=== PATIENT | male | born 1950 | race Two or more races ===

== ENCOUNTER 2024-10-20 16:13 | Emergency (ER) | payer MEDICARE, MEDICAID, SELFPAY ==
[2024-10-20 16:16] VITALS: BMI 29.2
[2024-10-20 16:32] VITALS: BP 101/65; PULSE 75; RESP 18; TEMP 37.1; O2SAT 99
--- NOTE | 2024-10-20 16:49 | PD.EDRME ---
Rapid Medical Screening Exam RME Arrival date/time: 10/20/24 16:13 Chief Complaint: General Adult/Misc Complain Vital signs: Vital Signs Temperature 98.7 F 10/20/24 16:32 Pulse Rate 75 10/20/24 16:32 Respiratory Rate 18 10/20/24 16:32 Blood Pressure 101/65 10/20/24 16:32 Pulse Oximetry (%) 99 10/20/24 16:32 Oxygen Delivery Method Room Air 10/20/24 16:32 Pulse ox is 99% room air Vital signs reviewed by provider: Yes RME Narrative: Patient presents to the emergency department with a complaint of left-sided facial drooping that began last night. Denies chest pain.
--- NOTE | 2024-10-20 16:50 | XR_ITS ---
Examination: PA lateral chest 2 views TECHNIQUE: Upright PA and lateral chest 2 views Date and time: October 20, 2024, 1657 hours INDICATIONS: Chest pain and shortness of breath today. FINDINGS: Early pneumonia left base, obscuring detail left hemidiaphragm Normal heart size No pulmonary edema. Moderate osteopenia IMPRESSION: Early pneumonia left base
--- NOTE | 2024-10-20 16:50 | EKG_ITS ---
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1950 Requested By: Tim Green Order Number: [id number] Reading MD: Tim Green Measurements Intervals [place] Rate: 56 P: 5 NV: 194 QRS: -24 QRSD: 115 T: 58 QT: 419 QTc: 407 Interpretive Statements SINUS BRADYCARDIA BORDERLINE LEFT AXIS DEVIATION [QRS AXIS < -20] MODERATE INTRAVENTRICULAR CONDUCTION DELAY [110+ ms QRS DURATION] MODERATE VOLTAGE CRITERIA FOR LVH, CONSIDER NORMAL VARIANT [MEETS CRITERIA IN ONE OF: R(aVL), S(V1), R(V5), R(V5/V6)+S(V1)] NONSPECIFIC T-WAVE ABNORMALITY Compared to ECG 08/28/2023 12:27:19 Sinus rhythm no longer present Ventricular premature complex(es) no longer present T-wave abnormality still present /store/S0/[id number].pdf
--- NOTE | 2024-10-20 17:25 | XR_ITS ---
Examination: CT brain head without contrast. 2-D sagittal coronal reconstructions Date and time of exam:October 20, 2024, 1754 hours, comparison August 28, 2023 INDICATIONS: Left facial droop beginning several days ago CTDI: vol (mGy):47.5 DLP: (mGycm):999 Technique: Multiple CT axial sections of the brain have been obtained, 5 mm slice thickness. Contrast has not been administered. 2-D sagittal, coronal reconstructions have been obtained Low dose protocols were performed. One or more of the following dose reduction techniques were used; automated exposure control, adjustment of the mA and/or KV according to patient size, use of iterative reconstruction technique. Findings: No significant ventricular enlargement. Stable frontal atrophy versus chronic subdural hygromas Intra-axial or extra-axial hemorrhage density is not seen. No mass effect or midline shift Basal cisterns are not remarkable. Fourth ventricle is midline. Cranial vault intact. Impression: Negative for acute hemorrhage, mass effect or midline shift As clinically warranted, brain MRI follow-up would best assess for acute ischemic change
[2024-10-20 17:35] LABS: Basophils # (Auto) 0.1 Thou/mm3 (0.0-0.2); Basophils % (Auto) 1 % (0-2.5); Eosinophils # (Auto) 0.1 Thou/mm3 (0.0-0.5); Eosinophils % (Auto) 3 % (0-10); Hematocrit 40.4 % (41.0-53.0); Hemoglobin 13.1 g/dL (13.5-16.0); Immature Granulocytes Auto 0.01 Thou/mm3 (0.00-0.00); Lymphocytes # (Auto) 1.1 Thou/mm3 (1.0-4.8); Lymphocytes % (Auto) 30 % (10-50); Mean Corpuscular HGB Conc 32.4 g/dl (31.0-37.0); Mean Corpuscular Hemoglobin 27.2 pg (25.0-35.0); Mean Corpuscular Volume 84 fL (80-100); Monocytes # (Auto) 0.3 Thou/mm3 (0.0-0.8); Monocytes % (Auto) 8 % (0-12); Neutrophils # (Auto) 2.1 Thou/mm3 (1.8-7.7); Neutrophils % (Auto) 57 % (37-80); Nucleated Red Blood Cell # 0.00 Thou/mm3 (0.00-0.00); Nucleated Red Blood Cell % 0 /100 WBC (0); Platelet Count 191 Thou/mm3 (140-440); RDW Standard Deviation 43.7 fL (35.1-43.9); Red Blood Count 4.81 Miln/mm3 (4.50-5.90); White Blood Count 3.7 Thou/mm3 (3.8-10.6)
[2024-10-20 17:42] LABS: B-Type Natriuretic Peptide 137 pg/mL (0-100)
[2024-10-20 17:45] LABS: INR 1.0 (0.9-1.3); Partial Thromboplastin Time 27.4 Seconds (22.0-36.0); Prothrombin Time 11.4 Seconds (9.0-12.2)
--- NOTE | 2024-10-20 18:16 | PC.LAC ---
Patient back from ct and taken to room 2 with daughter and at bedside, per daughter, patient rinsing his mouth out last pm at 1999 and was unable to keep the water in his mouth. Also, patient was having difficulty speaking and walking slow, patient alert and oriented x 4, denies pain, patient noted to have obvious left facial droop and slurred speech per daughter, skin is warm dry and pink, awaiting ct results.
[2024-10-20 18:24] LABS: Collection Type, Urine Clean Catch; RBC,Urine 0 /hpf (0-3); Squamous Epithelial Cell,Urine 0 /hpf (0-5); WBC,Urine 0 /hpf (0-5)
[2024-10-20 18:27] VITALS: BP 131/79; PULSE 61; RESP 19; TEMP 36.7; O2SAT 96
--- NOTE | 2024-10-20 18:29 | PD.EDADULT ---
ED General RME/HPI General Chief complaint: General Adult/Misc Complain Stated complaint: MOUTH DROOPING, DYSPHAGIA, LKW 2000 YEST. Time Seen by Provider: 10/20/24 18:27 Arrival date/time: 10/20/24 16:13 RME / HPI RME / HPI narrative: Patient presents to the emergency department with a complaint of left-sided facial drooping that began last night. Denies chest pain. Dr. Lawson?s Main ED Evaluation: 74yo male with a history of non-insulin dependent DM, HTN, HLD BIB his and daughter presents to the ED for a chief complaint of left-sided facial droop x 1999 last night. Patient was rinsing his mouth out with water last night when he noticed it was coming out of the left side of his mouth . Denies any weakness, numbness, difficulty ambulating, or any other associated symptoms. NKA. Patient denies any problems with his vision or speech. Related Data Home Medications ?Medication ?Instructions ?Recorded ?Confirmed Amlodipine Besylate 10 mg PO DAILY ##0 01/10/10 Aspirin (Aspir 81) 81 mg PO DAILY ##0 01/10/10 chlorthalidone 25 mg tablet 12.5 mg PO DAILY ##0 01/10/10 clonidine HCl 0.1 mg tablet 0.1 mg PO QPM ##0 01/10/10 gemfibrozil 600 mg tablet 600 mg PO BID ##0 01/10/10 lovastatin 20 mg tablet 20 mg PO DAILY ##0 01/10/10 valsartan 320 mg tablet (Diovan) 320 mg PO DAILY ##0 01/10/10 Amitriptyline Hcl * (ELAVIL *) 25 mg PO HS #0 tabs 03/22/15 dapagliflozin propanediol 5 mg 5 mg PO QDAY #0 tabs 03/22/15 tablet (Farxiga) metoprolol tartrate 50 mg tablet 50 mg PO BID #0 tabs 03/22/15 Previous Rx's ?Medication ?Instructions ?Recorded meclizine 25 mg tablet 25 mg PO BID PRN dizziness or 08/17/20 vertigo #10 tabs acyclovir 400 mg tablet 400 mg PO TID 1 week #21 tabs 10/20/24 prednisone 50 mg tablet 50 mg PO QDAY 1 week #7 tabs 08/13/25 Allergies Allergy/AdvReac Type Severity Reaction Status Date / Time No Known Allergies Allergy Verified 10/20/24 16:18 Review of Systems Review of Systems Systems Reviewed: All systems reviewed, normal except as documented Past Medical History Past Medical History CARDIAC: Positive Hypertension; Negative Congestive Heart Failure RESPIRATORY: Negative Chronic Obstructive Pulmonary Disease (COPD) GENITOURINARY: Negative Renal Disease ENDOCRINE: Positive Diabetes Mellitus Type 2 and Hypothyroidism; Negative Diabetes Mellitus Type 1 Social History SMOKING STATUS: Never smoker ED Exam Narrative Physical exam: Generally the patient is alert and in no obvious distress, heart is regular rate and rhythm with occasional extrasystolic beat lungs are clear to auscultation bilaterally abdomen is soft nondistended nontender neurologic exam shows the patient to have weak eye closing on the left with left-sided facial droop. He has diminished wrinkling to the left side of the forehead and eyebrow movement when compared to the right. He has 5 out of 5 muscle strength of bilateral upper and lower extremities. No ataxia. Neck showed no bruits. Course Quality Measures none Orders Category Date Time Status CT Screening NOW Care 10/20/24 16:[address] Screening X1 Care 10/20/24 16:50 Completed [employer] Q4H START 00 Care 10/20/24 18:27 Active EKG (ED ONLY) *Do not use* NOW Care 10/20/24 16:[address] head/brain wo con Stat Exams 10/20/24 17:25 Completed EKG (ED Only) Stat Exams 10/20/24 16:50 Draft XR chest 2V Stat Exams 10/20/24 16:50 Completed B-Type Natriuretic Peptide Stat Lab 10/20/24 17:18 Completed CBC Stat Lab 10/20/24 17:18 Completed Comprehensive Metabolic Panel Stat Lab 10/20/24 17:18 Results Drug Screen,Urine Stat Lab 10/20/24 17:50 Received LDH (Lactate Dehydrogenase) Stat Lab 10/20/24 17:18 Results Magnesium Stat Lab 10/20/24 17:18 Results Partial Thromboplastin Time Stat Lab 10/20/24 17:18 Completed Prothrombin Time with INR Stat Lab 10/20/24 17:18 Completed Troponin I Stat Lab 10/20/24 17:18 Results Urinalysis Stat Lab 10/20/24 17:50 Completed Vital Signs Vital signs: Vital Signs Temperature 98.7 F 10/20/24 16:32 Pulse Rate 75 10/20/24 16:32 Respiratory Rate 18 10/20/24 16:32 Blood Pressure 101/65 10/20/24 16:32 Pulse Oximetry (%) 99 10/20/24 16:32 Oxygen Delivery Method Room Air 10/20/24 16:32 Discharge Plan Plan Patient Disposition: HOME (Self Care) Prescriptions/Referrals Prescriptions/Med Rec: New acyclovir 400 mg tablet 400 mg PO TID 7 Days Qty: 21 0RF prednisone 50 mg tablet 50 mg PO QDAY 7 Days Qty: 7 0RF No Action Amlodipine Besylate 10 MG tablet 10 mg PO DAILY Qty: 0 Aspirin (Aspir 81) 81 MG TABLET.DR 81 mg PO DAILY Qty: 0 clonidine HCl 0.1 MG tablet 0.1 mg PO QPM Qty: 0 chlorthalidone 25 MG tablet 12.5 mg PO DAILY Qty: 0 gemfibrozil 600 MG tablet 600 mg PO BID Qty: 0 valsartan [Diovan] 320 MG tablet 320 mg PO DAILY Qty: 0 lovastatin 20 MG tablet 20 mg PO DAILY Qty: 0 Amitriptyline Hcl * (ELAVIL *) 25 MG tablet 25 mg PO HS Qty: 0 metoprolol tartrate 50 MG tablet 50 mg PO BID Qty: 0 dapagliflozin propanediol [Farxiga] 5 MG tablet 5 mg PO QDAY Qty: 0 meclizine 25 mg tablet 25 mg PO BID PRN (Reason: dizziness or vertigo) Qty: 10 0RF Referrals: Carloz Arellano MD [Primary Care Provider] - In 1 week Problem List Clinical Impression: Juárez's palsy Patient/Caregiver Discharge Instructions Education Materials: Juárez's Palsy Additional Instructions: Continue on current medications. Prednisone and acyclovir as prescribed. Follow-up with your doctor. Return to ER as needed or if condition worsens. Print Language: Ethiopian Stand Alone Forms: [employer] Award Info., Patient Portal Info Letter MDM Narrative [facility] hospital course: Scribe Attestation: 10/20/24 - Katherin Whitten, am scribing for and in the presence of Dr. Lawson. Differential diagnosis: Stroke, Juárez's palsy I am seeing this patient multiple hours into his ER stay. The symptoms of left-sided facial droop started at 8 PM last night which is approximately 10-1/2 to 11 hours prior to my evaluation. He has no somatic findings. All his neurologic findings are in the face. I interpreted all labs. CT scan of the brain showed no hemorrhage and no evidence of infarct. 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 There is no clinical evidence for stroke. I do long discussion with the patient and his family who helped with translation. They thoroughly understand the difference between Juárez's palsy and a stroke at this time. Patient already takes an aspirin a day. He is to continue that. Patient is to take the acyclovir and prednisone as prescribed. They are to watch his blood sugars due to the fact that he is a diabetic and being started on a weeks worth of prednisone. I will start that at 40 mg once a day. The acyclovir will be 400 mg 3 times a day for a week. He is to follow-up with his primary care physician. Return to ER as needed or if condition worsens. Clinical Information Provided by patient Medical Records Reviewed [facility] (Per chart review, patient was seen here on 08/28/23 for chest pain.) Meds/Rx Considered, not Ordered None Labs/Rad/Tests considered, not Ordered None Chronic Illness/Social Conditions Add or document further as needed: History of HTN, DM, HLD, hypothyroidism Lab Interpretation Labs: interpreted by me Imaging Imaging interpretation: interpreted by ms Radiology reports / interpretation(s): [facility] Report Signed Patient: EDUARDO STEPHENS [facility]. Record#: [id number] Birthdate: 1950 Age/Sex: 74 / M Location: [facility] Attending Dr: Ordering Physician: Tim Veliz PA-C Date of Service: 10/20/24 Procedure(s): XR chest 2V Accession Number(s): [id number] cc: Carloz Arellano MD; Rey Zamudio MD; Tim Veliz PA-C~ Examination: PA lateral chest 2 views TECHNIQUE: Upright PA and lateral chest 2 views Date and time: October 20, 2024, 1657 hours INDICATIONS: Chest pain and shortness of breath today. FINDINGS: Early pneumonia left base, obscuring detail left hemidiaphragm Normal heart size No pulmonary edema. Moderate osteopenia IMPRESSION: Early pneumonia left base Dictated By: Rey Zamudio MD Signed By: <Electronically signed by Rey Zamudio MD in OV> 10/20/24 8808 [facility] Imaging Report Signed Patient: EDUARDO STEPHENS Record#: [id number] Birthdate: 1950 Age/Sex: 74 / M [facility] Attending Dr: Ordering Physician: Tim Veliz PA-C Date of Service: 10/20/24 Procedure(s): CT head/brain wo con Accession Number(s): [id number] cc: Carloz Arellano MD; Rey Zamudio MD; Tim Veliz PA-C~ Examination: CT brain head without contrast. 2-D sagittal coronal reconstructions Date and time of exam:October 20, 2024, 1754 hours, comparison August 28, 2023 INDICATIONS: Left facial droop beginning several days ago CTDI: vol (mGy):47.5 DLP: (mGycm):999 Technique: Multiple CT axial sections of the brain have been obtained, 5 mm slice thickness. Contrast has not been administered. 2-D sagittal, coronal reconstructions have been obtained Low dose protocols were performed. One or more of the following dose reduction techniques were used; automated exposure control, adjustment of the mA and/or KV according to patient size, use of iterative reconstruction technique. Findings: No significant ventricular enlargement. Stable frontal atrophy versus chronic subdural hygromas Intra-axial or extra-axial hemorrhage density is not seen. No mass effect or midline shift Basal cisterns are not remarkable. Fourth ventricle is midline. Cranial vault intact. Impression: Negative for acute hemorrhage, mass effect or midline shift As clinically warranted, brain MRI follow-up would best assess for acute ischemic change Dictated By: Rey aZmudio MD Signed By: <Electronically signed by Rey Zamudio MD in OV> 10/20/24 0068 Medication Administration(s) none Diagnosis Differential diagnosis: CVA, TIA, Juárez's palsy Most likely dx, and/or detailed dx discussion: Juárez's palsy Dispositon Disposition: Discharge Home
[2024-10-20 18:33] LABS: Alanine Aminotransferase 13 U/L (10-49); Albumin, Serum 4.3 gm/dL (3.4-4.8); Albumin/Globulin Ratio 1.7 (1.2-2.2); Alkaline Phosphatase 41 U/L (46-116); Anion Gap 9 (7-16); Aspartate Amino Transferase 43 U/L (0-34); BUN/Creatinine Ratio 10 Ratio (12-20); Bilirubin,Total 0.3 mg/dL (0.3-1.2); Blood Urea Nitrogen 24 mg/dL (9-23); Calcium 9.8 mg/dL (8.3-10.6); Calcium (Corrected) 9.8 mg/dL (8.5-10.1); Carbon Dioxide 25.6 mMol/L (20.0-31.0); Chloride 107 mMol/L (98-107); Creatinine (Component) 2.3 mg/dL (0.6-1.3); Estimated Creatinine Clearance 30.2 mL/min (>60); Globulin 2.5 gm/dL (2.3-3.5); Glucose 198 mg/dL (74-106); Magnesium 2.3 mg/dL (1.6-2.6); Osmolality,Calculated 293 (275-295); Potassium 3.9 mMol/L (3.4-5.1); Sodium 142 mMol/L (136-145); Total Protein 6.8 gm/dL (5.7-8.2); Troponin I < 0.020 ng/mL (0.0-0.045); eGFR 29 See Note
[2024-10-20 18:35] VITALS: PULSE 66
--- NOTE | 2024-10-20 18:36 | PC.NURSE ---
Dr. Lawson at bedside.
[2024-10-20 19:00] LABS: Bilirubin,Urine Negative (Negative); Blood,Urine Negative (Negative); Clarity,Urine Clear (Clear/Hazy); Color,Urine Yellow (Lt Yel-Yel); Glucose, Urine 4+ (Negative); Hyaline Casts,Urine 1 /hpf (0-1); Ketones,Urine Negative (Negative); Leukocyte Esterase,Urine Negative (Negative); Nitrite,Urine Negative (Negative); PH,Urine 5.5 (5.0-7.0); Protein,Urine Negative (Neg - Trace); Specific Gravity,Urine 1.019 (1.001-1.035); Urobilinogen,Urine Negative mg/dL (0.0-1.0)
[2024-10-20 20:00] VITALS: BP 168/75; PULSE 77; PULSE 78; RESP 18; TEMP 36.7; O2SAT 99
[2024-10-20 21:01] LABS: LDH (Lactate Dehydrogenase) 170 U/L (120-246)
[2024-10-20 21:10] LABS: Amphetamine/Methamp Scrn,U Negative (Negative); Barbiturate Screen,Urine Negative (Negative); Benzodiazepines Screen,Urine Negative (Negative); Benzoylecgonine Screen, Ur Negative (Negative); Fentanyl Screen,Urine Negative (Negative); Opiate Screen,Urine Negative (Negative); THC Screen,Urine Negative (Negative)
== END 2024-10-20 20:05 | disposition home or self-care (01) ==
PROVIDERS: Physician Assistant; Emergency Provider Emergency Medicine; PCP Family Medicine
DX: G51.0 Bell's palsy (principal); J18.9 Pneumonia, unspecified organism; E11.9 Type 2 diabetes mellitus without complications; E78.5 Hyperlipidemia, unspecified; I10 Essential (primary) hypertension
CPT/HCPCS: 36415; 70450; 71046; 80053; 80307; 81001; 83615; 83735; 83880; 84484; 85025; 85610; 85730; 93005; 99284

== ENCOUNTER 2025-02-24 10:17 | Emergency (ER) | payer MEDICARE, MEDICAID, SELFPAY ==
[2025-02-24 10:18] VITALS: BMI 28.8
--- NOTE | 2025-02-24 10:23 | EKG_ITS ---
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1950 Requested By: Rambo Murdock (AARON) Order Number: [id number] Reading MD: Rambo Murdock (FUR JOINER) Measurements Intervals [place] Rate: 61 P: 17 SC: 188 QRS: -29 QRSD: 117 T: 60 QT: 440 QTc: 444 Interpretive Statements SINUS RHYTHM BORDERLINE LEFT AXIS DEVIATION [QRS AXIS < -20] LEFT VENTRICULAR HYPERTROPHY AND ST-T CHANGE [VOLTAGE CRITERIA PLUS ST/T ABNORMALITY] Compared to ECG 10/20/2024 17:11:40 ST (T wave) deviation now present Sinus bradycardia no longer present Intraventricular conduction delay no longer present T-wave abnormality no longer present /store/S0/[id number]/[id number].pdf
[2025-02-24 10:39] VITALS: BP 105/63; PULSE 61; RESP 16; TEMP 36.8; O2SAT 97
--- NOTE | 2025-02-24 10:43 | XR_ITS ---
EXAMINATION: PA lateral chest 2 views TECHNIQUE: PA lateral chest 2 views Date and time: February 24, 2025 1057 hours INDICATIONS: Chest pain beginning today. FINDINGS: Normal heart size Lungs are clear. Moderate osteopenia IMPRESSION: No active disease
--- NOTE | 2025-02-24 10:43 | PD.EDRME ---
Rapid Medical Screening Exam RME Arrival date/time: 02/24/25 10:17 74-year-old male presents to the Emergency Department today complains of dizziness ongoing since yesterday Chief Complaint: Dizziness Time Seen by Provider: 02/24/25 10:22 Vital signs: Vital Signs Temperature 98.2 F 02/24/25 10:39 Pulse Rate 61 02/24/25 10:39 Respiratory Rate 16 02/24/25 10:39 Blood Pressure 105/63 02/24/25 10:39 Pulse Oximetry (%) 97 02/24/25 10:39 Oxygen Delivery Method Room Air 02/24/25 10:39 Vital signs reviewed by provider: Yes Exam: On exam patient appears ill but not toxic Clinical Impression: Labs and imaging ordered as well as EKG
[2025-02-24 11:06] LABS: Basophils # (Auto) 0.0 Thou/mm3 (0.0-0.2); Basophils % (Auto) 1 % (0-2.5); Eosinophils # (Auto) 0.1 Thou/mm3 (0.0-0.5); Eosinophils % (Auto) 2 % (0-10); Hematocrit 40.9 % (41.0-53.0); Hemoglobin 13.1 g/dL (13.5-16.0); Immature Granulocytes Auto 0.01 Thou/mm3 (0.00-0.00); Lymphocytes # (Auto) 0.7 Thou/mm3 (1.0-4.8); Lymphocytes % (Auto) 18 % (10-50); Mean Corpuscular HGB Conc 32.0 g/dl (31.0-37.0); Mean Corpuscular Hemoglobin 26.8 pg (25.0-35.0); Mean Corpuscular Volume 84 fL (80-100); Monocytes # (Auto) 0.3 Thou/mm3 (0.0-0.8); Monocytes % (Auto) 8 % (0-12); Neutrophils # (Auto) 2.6 Thou/mm3 (1.8-7.7); Neutrophils % (Auto) 71 % (37-80); Nucleated Red Blood Cell # 0.00 Thou/mm3 (0.00-0.00); Nucleated Red Blood Cell % 0 /100 WBC (0); Platelet Count 171 Thou/mm3 (140-440); RDW Standard Deviation 42.5 fL (35.1-43.9); Red Blood Count 4.88 Miln/mm3 (4.50-5.90); White Blood Count 3.7 Thou/mm3 (3.8-10.6)
[2025-02-24 11:18] LABS: INR 1.0 (0.9-1.3); Partial Thromboplastin Time 24.8 Seconds (22.0-36.0); Prothrombin Time 10.7 Seconds (9.0-12.2)
[2025-02-24 11:30] LABS: Alanine Aminotransferase 12 U/L (10-49); Albumin, Serum 3.8 gm/dL (3.4-4.8); Albumin/Globulin Ratio 1.3 (1.2-2.2); Alkaline Phosphatase 49 U/L (46-116); Anion Gap 11 (7-16); Aspartate Amino Transferase 30 U/L (0-34); BUN/Creatinine Ratio 16 Ratio (12-20); Bilirubin,Total 0.4 mg/dL (0.3-1.2); Blood Urea Nitrogen 19 mg/dL (9-23); Calcium 9.0 mg/dL (8.3-10.6); Calcium (Corrected) 9.2 mg/dL (8.5-10.1); Carbon Dioxide 25.5 mMol/L (20.0-31.0); Chloride 109 mMol/L (98-107); Creatinine (Component) 1.2 mg/dL (0.6-1.3); Estimated Creatinine Clearance 57.7 mL/min (>60); Free T4 (Free Thyroxine) 1.38 ng/dL (0.89-1.76); Globulin 2.9 gm/dL (2.3-3.5); Glucose 236 mg/dL (74-106); Magnesium 2.1 mg/dL (1.6-2.6); Osmolality,Calculated 298 (275-295); Potassium 3.2 mMol/L (3.4-5.1); Sodium 145 mMol/L (136-145); Thyroid Stimulating Hormone 3.36 uIU/mL (0.55-4.78); Total Protein 6.7 gm/dL (5.7-8.2); Troponin I < 0.020 ng/mL (0.0-0.045); eGFR > 60 See Note
[2025-02-24 11:41] LABS: Collection Type, Urine Clean Catch
[2025-02-24 11:43] LABS: B-Type Natriuretic Peptide 135 pg/mL (0-100)
[2025-02-24 11:54] LABS: Bilirubin,Urine Negative (Negative); Blood,Urine Negative (Negative); Clarity,Urine Clear (Clear/Hazy); Color,Urine Lt-Yellow (Lt Yel-Yel); Culture Indicated,Urine Not Indicated; Glucose, Urine 4+ (Negative); Ketones,Urine Negative (Negative); Leukocyte Esterase,Urine Negative (Negative); Nitrite,Urine Negative (Negative); PH,Urine 6.5 (5.0-7.0); Protein,Urine Negative (Neg - Trace); RBC,Urine 2 /hpf (0-3); Specific Gravity,Urine 1.020 (1.001-1.035); Squamous Epithelial Cell,Urine < 1 /hpf (0-5); Urobilinogen,Urine Negative mg/dL (0.0-1.0); WBC,Urine < 1 /hpf (0-5)
[2025-02-24 12:08] LABS: Amphetamine/Methamp Scrn,U Negative (Negative); Barbiturate Screen,Urine Negative (Negative); Benzodiazepines Screen,Urine Negative (Negative); Benzoylecgonine Screen, Ur Negative (Negative); Fentanyl Screen,Urine Negative (Negative); Opiate Screen,Urine Negative (Negative); THC Screen,Urine Negative (Negative)
--- NOTE | 2025-02-24 12:23 | EDNOTE_ITS ---
ED Dizzyness RME/HPI General Chief Complaint: Dizziness Stated Complaint: DIZZY Time Seen by Provider: 02/24/25 10:22 Arrival date/time: 02/24/25 10:17 RME / HPI RME / HPI Narrative: 02/24/25 10:17 74-year-old male presents to the Emergency Department today complains of dizziness ongoing since yesterday DR. KERN MAIN ED EVALUATION 74 year old male with history of prostate cancer, hypertension, diabetes, hyp othyroidism presents to the ED for evaluation of dizziness that was noticed on awakening at 09:00 AM yesterday morning. Described feeling drunk that has not improved since onset. Accompanied by head pressure sensation. Denies nausea, vomiting, diarrhea, abdominal pain, chest pain. Patient mentioned 4 days ago he had an upper respiratory infection, accompanied by a cough, that has since improved. Exam: On exam patient appears ill but not toxic Impression: Labs and imaging ordered as well as EKG Related Data Home Medications ?Medication ?Instructions ?Recorded ?Confirmed Amlodipine Besylate 10 mg PO DAILY ##0 01/10/10 Aspirin (Aspir 81) 81 mg PO DAILY ##0 01/10/10 chlorthalidone 25 mg tablet 12.5 mg PO DAILY ##0 01/10 clonidine HCl 0.1 mg tablet 0.1 mg PO QPM ##0 01/10/10 gemfibrozil 600 mg tablet 600 mg PO BID ##0 01/10/10 lovastatin 20 mg tablet 20 mg PO DAILY ##0 01/10/10 valsartan 320 mg tablet (Diovan) 320 mg PO DAILY ##0 1 03/12/09 Amitriptyline Hcl * (ELAVIL *) 25 mg PO HS #0 tabs dapagliflozin propanediol 5 mg 5 mg PO QDAY #0 tabs tablet (Farxiga) metoprolol tartrate 50 mg tablet 50 mg PO BID #0 tabs 03/22/15 Previous Rx's ?Medication ?Instructions ?Recorded meclizine 25 mg tablet 25 mg PO BID PRN dizziness o r 08/17/20 vertigo #10 tabs meclizine 25 mg tablet 25 mg PO TID PRN dizziness # 20 tabs 02/24/25 Allergies Allergy/AdvReac Type Severity Reaction Status Date / Time No Known Allergies Allergy Verified 02/24/25 10:24 Review of Systems Review of Systems Systems Reviewed: All systems reviewed, normal except as documented Past Medical History Past Medical History CARDIAC: Positive Hypertension GENITOURINARY: Positive Prostate Cancer (DX 2023, LAST RADIATION 2024) ENT: Positive Cataracts (DELFINO.) ENDOCRINE: Positive Diabetes Mellitus Type 2 and Hypothyroidism OTHER HISTORY: Positive Cancer and Prostate Cancer (DX 2023, LAST RADIATION 2024) Social History SMOKING STATUS: Never smoker ED Exam Narrative Physical exam: Constitutional: Awake, alert, nontoxic, no acute distress HEENT: Normocephalic, atraumatic, extraocular movements intact, slight nystagmus Neck: Supple CV: Regular rate and rhythm, no murmurs/rubs/gallops Lungs: Clear to auscultation BL, no respiratory distress. Extremities: No deformities, no edema noted Neuro: AAOx3, CN 2-12 GIBL, no acute neuro deficit noted. Romberg negative, gait is steady, finger to nose is normal, no pronator drift very slight dysmetria with rapid alternating hand movement though no consistent all the time Skin: Warm, dry, intact Course Course Course Narrative: 1628p: On reassessment, the patient reports feeling improved after medication. The dizziness is most likely of peripheral origin, and the symptoms have improved with meclizine. The head CT was negative.We reviewed all the results, analysis, and treatment plans. Patient is amenable to discharge. Strict return precautions were outlined. Quality Measures none Orders Category Date Time Status EKG (ED ONLY) *Do not use* NOW Care 02/24/25 10:[address] head/brain wo con Stat Exams 02/24/25 12:46 Completed EKG (ED Only) Stat Exams 02/24/25 10:23 Draft XR chest 2V Stat Exams 02/24/25 10:43 Completed B-Type Natriuretic Peptide Stat Lab 02/24/25 10:52 Completed CBC Stat Lab 02/24/25 10:52 Completed Comprehensive Metabolic Panel Stat Lab 02/24/25 10:52 Completed Drug Screen,Urine Stat Lab 02/24/25 11:03 Completed Free T4 (Free Thyroxine) Stat Lab 02/24/25 10:52 Completed Magnesium Stat Lab 02/24/25 10:52 Completed Partial Thromboplastin Time Stat Lab 02/24/25 10:52 Completed Prothrombin Time with INR Stat Lab 02/24/25 10:52 Completed TSH [Thyroid Stimulating Hormone] Stat Lab 02/24/25 10:52 Completed Troponin I Stat Lab 02/24/25 10:52 Completed Urinalysis, C/S if Indicated Stat Lab 02/24/25 11:03 Completed Meclizine HCl [Antivert] Med 02/24/25 12:46 Discontinued 50 mg PO X1 ONE Vital Signs Vital signs: Vital Signs Temperature 98.2 F 02/24/25 10:39 Pulse Rate 61 02/24/25 10:39 Respiratory Rate 16 02/24/25 10:39 Blood Pressure 105/63 02/24/25 10:39 Pulse Oximetry (%) 97 02/24/25 10:39 Oxygen Delivery Method Room Air 02/24/25 10:39 Pulse ox is 97% on room air which is adequate. Dizziness MDM Narrative MDM Narrative:: 74-year-old male admitted for evaluation of dizziness that was first noticed yesterday morning when he awoke. On exam he had a overall generally benign exam. Was slightly unsteady on initial exam but on repeat exam of symptoms had completely resolved after dose of meclizine. Labs generally unremarkable and CT brain negative. Has had a respiratory infection last few days and symptoms of dizziness likely related to same - likely peripheral in origin. Patient is okay for discharge home at this time with return precautions advised. Advised on meclizine for home. Melodie Whitten am scribing for and in the presence of Dr. Kern. Patient data External records reviewed:: [facility] previous records Clinical information provided by:: patient and spouse Social determinants that could affect healthcare access:: none Patient has the following chronic illnesses:: prostate cancer, hypertension, diabetes, hypothyroidism How is presenting disease/condition affected by chronic disease/condition?: uneffected by Evaluation data The following diagnostics were reviewed and interpreted by me:: lab results, radiology exam(s) and EKG tracing(s) (EKG @ 10:41 AM, interpreted by me, normal sinus rhythm, rate 61, left ventricular hypertrophy, no STEMI. ) Lab and/or radiology exams considered but not ordered:: None Interpretation Summary: Ordering Physician: Rambo Murdock NP, NP Date of Service: 02/24/25 Procedure(s): XR chest 2V Accession Number(s): [id number] cc: Mathieu (AARON),[employer]; Rey Zamudio MD~ EXAMINATION: PA lateral chest 2 views TECHNIQUE: PA lateral chest 2 views Date and time: February 24, 2025 1057 hours INDICATIONS: Chest pain beginning today. FINDINGS: Normal heart size Lungs are clear. Moderate osteopenia IMPRESSION: No active disease Dictated By: Rey Zamudio MD Signed By: <Electronically signed by Rey Zamudio MD in OV> 02/24/25 1119 Ordering Physician: eJaneth Kern MD Date of Service: 02/24/25 Procedure(s): CT head/brain wo [facility] Accession Number(s): [id number] cc: Carloz Arellano MD; Rey Zamudio MD; Jeaneth Kern MD~ Examination: CT brain head without contrast. 2-D sagittal coronal reconstructions Date and time of exam: February 24, 2025, 1434 hours, comparison October 20, 2024 INDICATIONS: Onset dizziness today CTDI: vol (mGy): 49 DLP: (mGycm): 988 Technique: Multiple CT axial sections of the brain have been obtained, 5 mm slice thickness. Contrast has not been administered. 2-D sagittal, coronal reconstructions have been obtained Low dose protocols were performed. One or more of the following dose reduction techniques were used; automated exposure control, adjustment of the mA and/or KV according to patient size, use of iterative reconstruction technique. Findings: No significant ventricular enlargement. Intra-axial or extra-axial hemorrhage density is not seen. No mass effect or midline shift Basal cisterns are not remarkable. Fourth ventricle is midline. Cranial vault intact. Impression: Negative for acute hemorrhage, mass effect or midline shift Advise clinical correlation and follow-up accordingly Dictated By: Rey Zamudio MD Signed By: <Electronically signed by Rey Zamudio MD in OV> 02/24/25 1443 Medications / Prescriptions Medications or Prescriptions considered but not ordered:: None Medication administrations:: Medication Administration History Discontinued Medications Meclizine HCl (Meclizine Hcl 25 Mg Tablet) 50 mg PO X1 ONE Stop: 02/24/25 12:47 Last Admin: 02/24/25 13:37 Dose: 50 mg Documented By: OA See above Consultations Consultation(s) initiated? (list below): No Diagnosis Dizziness Differential Diagnosis: benign paroxysmal positional vertigo and orthostatic hypotension Most likely diagnosis given after review of the tests above:: Vertigo URI Admission Indicated Admission indicated?: not indicated Admission Request Was there a request for admission?: No Disposition Plan Disposition Plan: Discharge Discharge Attestation Discharge Attestation: The patient and all family members were given an opportunity to ask questions and understood the discharge instructions. Discharge instructions specifically effects, indications for sooner follow up or return to the emergency department, and the expected course of current diagnosis. Patient condition: Stable Discharge Plan Plan Patient Disposition: HOME (Self Care) Patient condition on transfer: Stable Prescriptions/Referrals Prescriptions/Med Rec: New meclizine 25 mg tablet 25 mg PO TID PRN (Reason: dizziness) Qty: 20 0RF No Action Amlodipine Besylate 10 MG tablet 10 mg PO DAILY Qty: 0 Aspirin (Aspir 81) 81 MG TABLET.DR 81 mg PO DAILY Qty: 0 clonidine HCl 0.1 MG tablet 0.1 mg PO QPM Qty: 0 chlorthalidone 25 MG tablet 12.5 mg PO DAILY Qty: 0 gemfibrozil 600 MG tablet 600 mg PO BID Qty: 0 valsartan [Diovan] 320 MG tablet 320 mg PO DAILY Qty: 0 lovastatin 20 MG tablet 20 mg PO DAILY Qty: 0 Amitriptyline Hcl * (ELAVIL *) 25 MG tablet 25 mg PO HS Qty: 0 metoprolol tartrate 50 MG tablet 50 mg PO BID Qty: 0 dapagliflozin propanediol [Farxiga] 5 MG tablet 5 mg PO QDAY Qty: 0 meclizine 25 mg tablet 25 mg PO BID PRN (Reason: dizziness or vertigo) Qty: 10 0RF Referrals: Carloz Arellano MD [Primary Care Provider] - In 1 week Problem List Clinical Impression: Vertigo, URI (upper respiratory infection) Patient/Caregiver Discharge Instructions Education Materials: Vertigo Medicine Tx, Vertigo Staying Safe Additional Instructions: Algunos principios generales de dilcia que pueden ayudarte son los principios de ADELANTE: Agua: (beber suficiente agua fresca para mantenerse hidratado, priorizando el agua en lugar de refrescos, caf?, t?, jugos, etc.). [place] (descansar adecuadamente por la noche, acostarse unas horas antes de la medianoche y evitar las pantallas, la televisi?n y la m?axel ele nick antes de acostarse, as? kristina las comidas pesadas nick antes de acostarse). Ejercicio: (ejercicio/caminatas diarias seg?n la tolerancia). Shannon solar: (exponer la piel al christy rodrick 15-20 minutos aproximadamente, temprano por la ma?edilberto y al atardecer, para obtener los beneficios de la vitamina D). Aire (ejercicios de respiraci?n profunda temprano por la ma?edilberto al aire stephanie). Nutricion: (consumir jovani dieta a base de plantas, evitar las susan en general y los alimentos altamente procesados). Templanza (evitar el alcohol, las drogas il?citas, las bebidas con cafe?na, fumar, etc.). [place]anda en [place]adiel (dedicar tiempo diariamente al estudio b?blico y la oraci?n: la contemplaci?n tiene beneficios para la dilcia). Recursos adicionales que pueden ser ?odilia: www.[employer].com, consulte la secci?n de recursos y seminarios. Print Language: Niuean Stand Alone Forms: Elo Award Info., Patient Portal Info Letter
--- NOTE | 2025-02-24 12:46 | XR_ITS ---
Examination: CT brain head without contrast. 2-D sagittal coronal reconstructions Date and time of exam: February 24, 2025, 1434 hours, comparison October 20, 2024 INDICATIONS: Onset dizziness today CTDI: vol (mGy): 49 DLP: (mGycm): 988 Technique: Multiple CT axial sections of the brain have been obtained, 5 mm slice thickness. Contrast has not been administered. 2-D sagittal, coronal reconstructions have been obtained Low dose protocols were performed. One or more of the following dose reduction techniques were used; automated exposure control, adjustment of the mA and/or KV according to patient size, use of iterative reconstruction technique. Findings: No significant ventricular enlargement. Intra-axial or extra-axial hemorrhage density is not seen. No mass effect or midline shift Basal cisterns are not remarkable. Fourth ventricle is midline. Cranial vault intact. Impression: Negative for acute hemorrhage, mass effect or midline shift Advise clinical correlation and follow-up accordingly
[2025-02-24] MEDS: MECLIZINE HCL 25 MG TABLET 50 MG PO (13:37)
== END 2025-02-24 17:34 | disposition home or self-care (01) ==
PROVIDERS: Nurse Practitioner Primary Care; Emergency Provider Family Medicine; PCP Family Medicine
DX: J06.9 Acute upper respiratory infection, unspecified (principal); R94.31 Abnormal electrocardiogram [ECG] [EKG]; R42 Dizziness and giddiness
CPT/HCPCS: 36415; 70450; 71046; 80053; 80307; 81001; 83735; 83880; 84439; 84443; 84484; 85025; 85610; 85730; 93005; 99283; A9270